=== PATIENT | female | born 1980 | race Caucasian/White ===

== ENCOUNTER 2022-05-02 18:20 | Emergency (ER) | payer BC, OTHER ==
[2022-05-02 18:40] VITALS: RESP 16; TEMP 98.4
[2022-05-02] MEDS ORDERED: ORPHENADRINE 30 MG/ML 2 ML VIAL IM STA (19:35)
[2022-05-02] MEDS ORDERED: MORPHINE SULFATE 4 MG/ML SYRINGE IM STA (19:38)
--- NOTE | 2022-05-02 19:42 | ED ---
Back Pain HPI - General Chief Complaint: Back Pain/Injury Stated Complaint: back pain Time Seen by Provider: 05/02/22 19:14 Source: patient, RN notes reviewed, old records reviewed Limitations: no limitations - History of Present Illness Initial Comments: 41-year-old female presents to the emergency room complaining of low back pain that started when she woke up Saturday morning. Denies any injury. No strenuous activity on Saturday. She states this happens about every 3 months. She states did have an x-ray 3 months ago at urgent care that showed osteopenia. States was prescribed Robaxin at that time however she is not getting pain relief with that medication now. Denies any dysuria, no abdominal pain, no nausea vomiting diarrhea or fevers. MD Complaint: back pain -: hour(s) (12) Similar Symptoms Previously: Yes Place: home Radiation: right leg Severity scale (1-10): 10 Quality: sharp Consistency: constant Improves With: none Worsens With: movement Context: unknown Associated Symptoms: denies other symptoms Treatments Prior to Arrival: other (Robaxin) - Related Data Previous Rx's Medication Instructions Recorded Hydrocodone/Acetaminophen [[place] 1 each PO Q6HR PRN #15 tab 06/26/16 5-325] Ondansetron Odt [Zofran ODT] 4 mg PO Q8HR PRN #10 tab 06/26/16 Cyclobenzaprine [Flexeril] 10 mg PO TID PRN #15 tab 05/02/22 Lidocaine 5% Patch [Lidoderm] 1 patch TOPICAL DAILY 20 Days #20 05/02/22 patch Allergies Allergy/AdvReac Type Severity Reaction Status Date / Time ibuprofen [From Motrin] Allergy Severe Anaphylaxis Verified 05/02/22 18:40 anti-inflammatories Allergy Anaphylaxis Uncoded 05/02/22 18:40 Review of Systems ROS Statement: Those systems with pertinent positive or pertinent negative responses have been documented in the HPI. ROS Other: All systems not noted in ROS Statement are negative. Past Medical History Past Medical History: No Reported History Additional Past Medical History / Comment(s): Gestational diabetes History of Any Multi-Drug Resistant Organisms: None Reported Past Surgical History: Section Past Anesthesia/Blood Transfusion Reactions: Motion Sickness, Postoperative Nausea & Vomiting (PONV) Additional Past Anesthesia/Blood Transfusion Reaction / Comment(s): experienced n/v after spinal anesthesia Past Psychological History: Depression Smoking Status: Never smoker Past Alcohol Use History: None Reported Past Drug Use History: None Reported - Past Family History Mother Family Medical History: No Reported History General Exam Limitations: no limitations General appearance: alert, in no apparent distress Head exam: Present: atraumatic, normocephalic Eye exam: Present: normal appearance. Absent: scleral icterus, conjunctival injection, periorbital swelling ENT exam: Present: mucous membranes moist Neck exam: Present: full ROM. Absent: tenderness, meningismus Respiratory exam: Present: normal lung sounds bilaterally. Absent: respiratory distress, accessory muscle use Cardiovascular Exam: Present: regular rate GI/Abdominal exam: Present: soft Extremities exam: Present: normal capillary refill. Absent: pedal edema Back exam: Present: normal inspection, tenderness, paraspinal tenderness (Lumbar sacral right ), vertebral tenderness (lumbar Sacral). Absent: CVA tenderness (R), CVA tenderness (L), rash noted Neurological exam: Present: alert, oriented X3 Psychiatric exam: Present: normal affect, normal mood, other (tearful) Skin exam: Present: warm, dry, normal color. Absent: cyanosis, diaphoretic, petechiae, pallor Course Vital Signs 05/02/22 05/02/22 18:38 21:20 Temperature 98.4 F Pulse Rate 87 72 Respiratory 16 16 Rate Blood Pressure 163/116 134/90 O2 Sat by Pulse 98 99 Oximetry Medical Decision Making - Medical Decision Making Obese patient presents with acute low back pain radiating down her right leg since Saturday morning. She denies any injuries. She states that she has had episodes of this in the past and seems to happen every 3 months. X-ray lumbar spine shows no acute fracture. Mild multilevel disc degeneration. No evidence of loss of vertebral body height normal alignment. There is a mild foraminal stenosis L5-S1. Cholecystectomy clips noted. Patient states that she is ALLERGIC to ibuprofen. She was given Norflex and morphine for pain in addition to Lidoderm patch for topical pain relief. No red flag symptoms. No bowel or bladder incontinence. No focal neurological deficits. No fevers. Vital signs are stable. Initially patient's blood pressure was elevated likely related to pain. She was instructed to follow-up with her primary care doctor regarding possible hypertension. She was prescribed Lidoderm patches and Flexeril with Tylenol for pain relief. Follow up with her primary care doctor for continuation of care this week. Strict return parameters were discussed. Case discussed with Dr. Davis. Disposition Clinical Impression: Back pain Disposition: HOME SELF-CARE Condition: Good Instructions (If sedation given, give patient instructions): Back Pain (ED) Additional Instructions: Tylenol, Flexeril and Lidoderm patches for back pain. Follow-up with your primary care doctor for continuation of care and possible MRI since you have had multiple episodes of this pain. Return to the emergency room with any new or concerning symptoms including fever, inability to ambulate, or incontinence of bowel or bladder Prescriptions: Cyclobenzaprine [Flexeril] 10 mg PO TID PRN #15 tab PRN Reason: Muscle Spasm Lidocaine 5% Patch [Lidoderm] 1 patch TOPICAL DAILY 20 Days #20 patch Is patient prescribed a controlled substance at d/c from ED?: No Referrals: Ziggy Arriaga MD [Primary Care Provider] - 1-2 days
--- NOTE | 2022-05-02 20:21 | XR ---
EXAMINATION TYPE: XR lumbar spine 2 or 3V DATE OF EXAM: 05/02/2022 8:09 PM INDICATION: Patient age:Female; 41 years old; Reason for study: pain; COMPARISON: None TECHNIQUE: Frontal, lateral and coned in L5-S1 lateral views of the spine. FINDINGS: No evidence of any acute osseous pathology. No evidence of loss of vertebral body height i s seen. There is normal alignment of the lumbar vertebral bodies. Mild scattered disc space narrowing . Multilevel marginal osteophyte formation throughout the visualized spine. There is facet joint arth ropathy throughout the spine. At least mild neural foraminal stenosis L5-S1. Right upper quadrant cho lecystectomy clips. IMPRESSION: 1. No acute fracture. 2. Mild multilevel disc degeneration.
[2022-05-02] MEDS ORDERED: ONDANSETRON ODT 4 MG TAB PO STA (20:45)
[2022-05-02] MEDS ORDERED: LIDOCAINE 5% PATCH TOPICAL SCH (20:45)
[2022-05-02 21:21] VITALS: BP 134/90; PULSE 72
== END 2022-05-02 21:22 | disposition home or self-care (01) ==
LOC: EC 18:20
DX: M54.50 Low back pain, unspecified (principal); F32.A Depression, unspecified; Z88.6 Allergy status to analgesic agent
CPT/HCPCS: 72100; 99283; 96372 ×2; J2270; J2360

== ENCOUNTER → 2022-11-22 | Outpatient (CLI) | payer BC, OTHER ==
--- NOTE | 2022-11-23 19:20 | MM ---
Reason for Exam: Screening (asymptomatic). Baseline mammogram. Patient History: Menarche at age 11. First Full-Term at age 21. Patient has history of breast feeding. Paternal grandfather had breast cancer, age 56. Last menstrual period: 10/22/2022 Risk Values: Kimberly 5 year model risk: 0.6%. NCI Lifetime model risk: 9.8%. Prior Study Comparison: Patient's first Mammogram. Tissue Density: There are scattered fibroglandular densities. Findings: Analyzed By CAD. No significant mass, suspicious microcalcification, or discrete abnormality seen. Some benign dermal calcifications anteriorly on the right. Overall Assessment: Benign, BI-RAD 2 Management: Screening Mammogram of both breasts in 1 year. . Patient should continue monthly self-breast exams. A clinical breast exam by your physician is recommended on an annual basis. This exam should not preclude additional follow-up of suspicious palpable abnormalities. Note on Kimberly scores and lifetime risk: 1. A Kimberly score greater than 3% is considered moderate risk. If this is the case, consider specialist referral to assess eligibility for a risk reducing agent. 2. If overall lifetime risk for the development of breast cancer is 20% or higher, the patient may qualify for future screening with alternating mammogram and breast MRI. Electronically signed and approved by: Nicolette Tang M.D. Radiologist
== END | disposition home or self-care (01) ==
LOC: RADMAMWWP 16:07
PROVIDERS: ATTEND Pediatrics
DX: Z12.31 Encounter for screening mammogram for malignant neoplasm of breast (principal); Z80.3 Family history of malignant neoplasm of breast
CPT/HCPCS: 77063; 77067

== ENCOUNTER → 2023-12-05 | Outpatient (CLI) | payer BC ==
--- NOTE | 2023-12-06 18:43 | MM ---
Reason for Exam: Screening (asymptomatic). Last mammogram was performed 1 year(s) and 1 month(s) ago. Patient History: Menarche at age 11. First Full-Term at age 21. Premenopausal. Patient has history of breast feeding. Paternal grandfather had breast cancer, age 56. Risk Values: Kimberly 5 year model risk: 0.6%. NCI Lifetime model risk: 9.7%. Prior Study Comparison: 11/22/2022 Bilateral MG 3D screening mammo w/cad, [facility]. Tissue Density: There are scattered areas of fibroglandular density. Findings: Analyzed By CAD. There is no suspicious group of microcalcifications or new suspicious mass in either breast. Overall Assessment: Negative, BI-RAD 1 Management: Screening Mammogram of both breasts in 1 year. . Patient should continue monthly self-breast exams. A clinical breast exam by your physician is recommended on an annual basis. This exam should not preclude additional follow-up of suspicious palpable abnormalities. Note on Kimberly scores and lifetime risk: 1. A Kimberly score greater than 3% is considered moderate risk. If this is the case, consider specialist referral to assess eligibility for a risk reducing agent. 2. If overall lifetime risk for the development of breast cancer is 20% or higher, the patient may qualify for future screening with alternating mammogram and breast MRI. Electronically signed and approved by: Nicolette Tang M.D. Radiologist
== END | disposition home or self-care (01) ==
LOC: RADMAMWWP 15:26
PROVIDERS: ATTEND Obstetrics & Gynecology
DX: Z12.31 Encounter for screening mammogram for malignant neoplasm of breast (principal); Z80.3 Family history of malignant neoplasm of breast
CPT/HCPCS: 77067

== ENCOUNTER → 2024-12-17 | Outpatient (CLI) | payer BC ==
--- NOTE | 2024-12-17 15:23 | MM ---
Reason for Exam: Screening (asymptomatic). Last screening mammogram was performed 12 month(s) ago. Patient History: Menarche at age 11. First Full-Term at age 21. Premenopausal. Patient has history of breast feeding. Paternal grandfather had breast cancer, age 56. Last menstrual period: 12/14/2024 Risk Values: Kimberly 5 year model risk: 0.7%. NCI Lifetime model risk: 9.6%. Prior Study Comparison: 11/22/2022 Bilateral MG 3D screening mammo w/cad, [facility]. 12/05/2023 Bilateral MG screening mammo w CAD, [facility]. Tissue Density: There are scattered areas of fibroglandular density. Findings: Analyzed By CAD. There is no suspicious group of microcalcifications or new suspicious mass in either breast. Overall Assessment: Negative, BI-RAD 1 Management: Screening Mammogram of both breasts in 1 year. Patient should continue monthly self-breast exams. A clinical breast exam by your physician is recommended on an annual basis. This exam should not preclude additional follow-up of suspicious palpable abnormalities. Note on Kimberly scores and lifetime risk: 1. A Kimberly score greater than 3% is considered moderate risk. If this is the case, consider specialist referral to assess eligibility for a risk reducing agent. 2. If overall lifetime risk for the development of breast cancer is 20% or higher, the patient may qualify for future screening with alternating mammogram and breast MRI. [facility], , 12/17/2024 3:20 PM. Electronically signed and approved by: Nicolette Tang M.D. Radiologist
== END | disposition home or self-care (01) ==
LOC: RADMAMWWP 14:29
PROVIDERS: ATTEND Pediatrics
DX: Z12.31 Encounter for screening mammogram for malignant neoplasm of breast (principal); R92.323 Mammographic fibroglandular density, bilateral breasts; Z80.3 Family history of malignant neoplasm of breast
CPT/HCPCS: 77063; 77067